=== PATIENT | female | born 1995 | race Caucasian/White ===

== ENCOUNTER 2017-02-10 19:34 | Emergency (ER) | payer OTHER ==
[2017-02-10 19:42] VITALS: BP 131/63; BMI 33.0
[2017-02-10] MEDS ORDERED: ADACEL TDaP IM ONE ×2 (19:42→19:43)
[2017-02-10] MEDS ORDERED: XYLOCAINE 1 % (PLAIN) ONE (20:15)
[2017-02-10] MEDS ORDERED: ZOFRAN INJ 4 MG VIAL IM ONE (20:47)
[2017-02-10] MEDS ORDERED: ANCEF VIAL 1 GM IM ONE (20:48)
[2017-02-10] MEDS ORDERED: ZOFRAN INJ 4 MG VIAL ONE (20:49)
[2017-02-10] MEDS ORDERED: ANCEF VIAL 1 GM ONE ×2 (20:50→20:59)
[2017-02-10] MEDS ORDERED: ULTRAM PO ONE (21:11)
[2017-02-10] MEDS ORDERED: MOTRIN TAB 600 MG PO ONE ×2 (21:11→21:18)
[2017-02-10] MEDS ORDERED: ULTRAM ONE (21:18)
--- NOTE | 2017-02-10 21:18 | DR.TRAUMA ---
HPI - Time Seen Time seen: 21:00 - PCP Primary Care Physician: CHICO - HPI Comment HPI Comment: TD NOT UTD. WOUND CONTAMINATED WITH DIRT. - Complaint/Symptom Chief Complaint Doctors Comments: LACERATION LT PINKY TOE. HAPPEN FEW HOURS AGO. Chief Complaint:: LACERATION TOO PINKY TOE ON LT FOOT - Nurses notes reviewed Nurses Notes Review: Yes - Source History Provided: Patient - Mode of Arrival Mode of Arrival: Ambulatory - Timing Onset of Chief Complaint: 02/10/17 - Duration Duration: Constant Duration: Hours - Context Tetanus: Unknown (NOT UTD) Mechanism: Cut Prehospital: None - Location Location (of pain or injury): Foot Lacerations: Extremities - Associated signs and symptoms Associated signs and symptoms: None PMH - PMH Past Medical History: No Past Surgical History: No Past Surgical History Comment: DENTAL - Family History History of Family Medical Conditions: Yes Family Medical History: Hypertension - Social History Does any household member use tobacco: No Alcohol Use: None Do you use any recreational Drugs:: No Lives With: Family Lives Where: Home - infectious screening In the last 2 months have you had wt loss of >10#?: NO Have you had fever, night sweats or hemotysis?: No Have you traveled outside the country in the last 6 months?: No Isolation: Standard ROS - Review of Systems Constitutional: No Symptoms Reported Eyes: No Symptoms Reported ENTM: No Symptoms Reported Respiratoy: No Symptoms Reported Cardiovascular: No Symptoms Reported Gastrointestinal/Abdominal: No Symptoms Reported Genitourinary: No Symptoms Reported Neurological: No Symptoms Reported Musculoskeletal: Left, Foot Integumentary: Other (LACERATION UNDER LEFT PINKY TOE.) Hematologic/Lymphatic: No Symptoms Reported Endocrine: No Symptoms Reported All Other Systems: Reviewed and Negative PE - Vitals Vitals: Temperature 98.6 F Pulse Rate 95 Respiratory Rate 18 Blood Pressure 131/63 O2 Sat by Pulse Oximetry 98 - General Limitations: No Limitations General Appearance: Alert - Head Head Exam: Normal Inspection - Eyes Eye exam: Normal Appearance Pupils: Regular, Round: Bilateral, Reactive: Bilateral - Respiratory Respiratory Exam: Bilateral Clear to Auscultation - Cardiovascular Cardiovascular Exam: Regular Rate, Normal Rhythm, Normal Heart Sounds - Extremities Extremities Exam: Tenderness (LT PINKY 3CM LAC UNDER TOES) - Discharge Plan Disposition: HOME, SELF-CARE Condition: Stable Prescriptions: Cephalexin [Keflex Cap 500 mg] 500 mg PO TID #30 cap Ibuprofen [MOTRIN TAB 600 MG *] 600 mg PO TID PRN #20 tab PRN Reason: Pain/Inflammation Tramadol HCl 50 mg PO Q8H PRN #15 tab PRN Reason: Pain - Follow ups/Referrals Follow ups/Referrals: MORELIA SHELTON [Primary Care Provider] - 3 days - Instructions Instructions: Laceration Care, Adult Additional Instructions: RETURN TO ED IF WORSE. SUTURE OUT IN 10 DAYS.
--- NOTE | 2017-02-10 22:04 | RAD ---
EXAM: Left foot x-ray INDICATION: Pain COMPARISION: None TECHNIQUE: AP, lateral, and oblique, three views FINDINGS: No acute fracture or dislocation. The joint spaces are preserved. The soft tissues are normal. No ra diopaque foreign body. IMPRESSION: Normal left foot x-ray exam Reported By:
== END 2017-02-10 21:35 | disposition home or self-care (01) ==
LOC: ER 19:34
PROC: 0YQ Anatomical Regions, Lower Extremities, Repair (ICD-10-PCS; principal; 2017-02-10)
DX: S91.132A Puncture wound without foreign body of left great toe without damage to nail, initial encounter (principal); W45.8XXA Other foreign body or object entering through skin, initial encounter; Y92.9 Unspecified place or not applicable
CPT/HCPCS: 73630; 90471; 96372; 99283; J0690; J2001; J2405